=== PATIENT | female | born 1970 | race Caucasian/White ===

== ENCOUNTER → 2020-10-21 | Day surgery (SDC) | payer OTHER ==
[~2020-10-21] MED LIST: DIPHENHYDRAMINE HCL INJ 50 MG/ML VIAL ONE; DOXYCYCLINE HYC50 MG PO; FENTANYL CITRATE/PF 100MCG/2 ML INJ ONE; GLUCAGON FOR INJ 1 MG VIAL ONE; HYOSCYAMINE SULFATE 0.5 MG/ML INJ ONE; MIDAZOLAM HCL 2 MG/2 ML VIAL ONE; PROPOFOL IV EMULSION 10 MG/ML 20 ML VIAL ONE
[2020-10-21 16:35] VITALS: BP 118/71
== END | disposition home or self-care (01) ==
LOC: OR 11:13
PROVIDERS: ATTEND Internal Medicine Gastroenterology
DX: Z12.11 Encounter for screening for malignant neoplasm of colon (principal); K63.5 Polyp of colon; K57.30 Diverticulosis of large intestine without perforation or abscess without bleeding; K62.89 Other specified diseases of anus and rectum; K58.9 Irritable bowel syndrome, unspecified; K64.8 Other hemorrhoids; R00.1 Bradycardia, unspecified; Z88.6 Allergy status to analgesic agent; Z85.43 Personal history of malignant neoplasm of ovary; Z80.0 Family history of malignant neoplasm of digestive organs
CPT/HCPCS: 45380; 93005; J1200; J1610; J1980; J2250; J2704; J3010